=== PATIENT | female | born 1950 ===

== ENCOUNTER 2016-11-15 07:30 | Day surgery (SDC) | payer MEDICARE ==
[2016-11-09 16:31] VITALS: BMI 31.1
[2016-11-15 08:41] VITALS: BP 144/84; PULSE 91; RESP 20; TEMP 97.6; O2SAT 100
[2016-11-15] MEDS ORDERED: Propofol 10 mg/ml Inj (20 ML) ONE (09:06)
[2016-11-15] MEDS ORDERED: Lidocaine 4% (Laryng-O-Jet) Kit MM ONE (09:08)
--- NOTE | 2016-11-15 09:48 | CP.PCM.PCO ---
Physician Communication Note - Physician Communication Note Physician Communication Note: Pt had yenny CV and can go home after a few hours. may eat when awake,
--- NOTE | 2016-11-15 12:23 | CARD ---
APPROVED REPORT EKG Measurement Heart [id number] <Conclusion> Sinus bradycardia Otherwise normal ECG
--- NOTE | 2016-11-24 12:13 | CARD ---
APPROVED REPORT EXAM: Transesophageal echocardiogram with color flow Doppler and Synchronized Cardioversion. INDICATION Atrial Fibrillation Mitral Valve E/A ratio0.0 TDI E/Lateral E'0.0E/Medial E'0.0 Tricuspid Valve TR Peak [id number] Peak Gr.29mmHg LEFT VENTRICLE The left ventricle is normal size. There is normal left ventricular wall thickness. The left ventricular function is normal. About 60% The left ventricular ejection fraction is within the normal range. No regional wall motion abnormalities noted. No left ventricle thrombus noted on this study. There is no ventricular septal defect visualized. There is no left ventricular aneurysm. There is no mass noted in the left ventricle. RIGHT VENTRICLE The right ventricle is mildly dilated There is normal right ventricular wall thickness. The right ventricular systolic function is normal. ATRIA The left atrium size is dilated No thrombus is noted in the appendage. PW doppler reveals low appendage emptying velocities of 15 cm/sec. The right atrium size is dilated The interatrial septum is intact with no evidence for an atrial septal defect. No PFO with color doppler. AORTIC VALVE The aortic valve is normal in structure and function. No aortic regurgitation is present. There is no aortic valvular stenosis. There is no aortic valvular vegetation. MITRAL VALVE The mitral valve is normal in structure and function. There is no evidence of mitral valve prolapse. There is no mitral valve stenosis. There is mild mitral valve regurgitation noted. TRICUSPID VALVE The tricuspid valve is normal in structure and function. There is moderaet to severe tricuspid valve regurgitation noted. estimated PA systolic pressure is 46 mm Hg. There is no tricuspid valve prolapse or vegetation. There is no tricuspid valve stenosis. PULMONIC VALVE The pulmonary valve is normal in structure and function. There is no pulmonic valvular regurgitation. There is no pulmonic valvular stenosis. GREAT VESSELS The aortic root is normal in size. The ascending aorta is normal in size. There is exgtenisve grade 5 irregular ulcerated plaque noted in the proximal desciending thoracic aorta. The pulmonary artery is normal. . PERICARDIAL EFFUSION The pericardium appears normal. There is no pleural effusion. <Conclusion> PW doppler of the LA appendage revealed low appendage emptying velocitiy of 15 cm/sec. Normal LV EF. Dilated Left atrium Moderate to severe TR, Aorta: There is exgtenisve grade 5 irregular ulcerated plaque noted in the proximal desciending thoracic aorta. With one 200 joule biphaisc synchronized shock, the patient converted to NSR from atrial fibrillation.
== END 2016-11-15 13:00 | disposition home or self-care (01) ==
LOC: C.CATHLAB 07:30
PROVIDERS: ATTEND Nuclear Medicine Nuclear Cardiology
DX: I48.91 Unspecified atrial fibrillation (principal)
CPT/HCPCS: 92960; 93005; 93312; 94770; J2001; J2704; J3010